=== PATIENT | male | born 1935 | race Caucasian/White ===

== ENCOUNTER 2018-08-10 18:06 | Emergency (ER) | payer OTHER, MEDICARE ==
--- NOTE | 2018-08-10 20:19 | EDPHY ---
H & P Smoking Status: Former smoker Time Seen by Provider: 08/10/18 19:59 HPI/ROS: CHIEF COMPLAINT: Skin tear left humerus HISTORY OF PRESENT ILLNESS: 83-year-old male with up-to-date tetanus tripped and fell impacting his left humerus sustaining skin tear. Occurred earlier this evening. No underlying osseous discomfort. This was a mechanical incident. No proximal or distal pain or injury PRIMARY CARE PROVIDER: REVIEW OF SYSTEMS: 10 systems reviewed and are negative with exception of illness mentioned in the history of present illness PHYSICAL EXAM (Prior to examination, patient consented to physical exam, hands were washed and my usual and customary physical exam procedures followed) 1) GENERAL: Well-developed, well-nourished, alert and oriented. Appears to be in no acute distress. 2) HEAD: Normocephalic 3) HEENT: sclera anicteric 4) LUNGS: Breathing comfortably. 5) SKIN: Left lateral humeral region superficial skin tear with no signs of infection. No underlying osseous discomfort 6) MUSCULOSKELETAL: Soft compartments. Proximally distally nontender. No underlying osseous discomfort. (Palak Carmichael) Constitutional: Initial Vital Signs Temperature (C) 36.7 C 08/10/18 18:10 Heart Rate 79 08/10/18 18:10 Respiratory Rate 18 08/10/18 18:10 Blood Pressure 118/67 08/10/18 18:10 O2 Sat (%) 95 08/10/18 18:10 O2 Delivery Mode Room Air Allergies/Adverse Reactions: No Known Allergies Allergy (Unverified 08/10/18 18:09) Home Medications: Medication Instructions Recorded Lovastatin 08/10/18 Meloxicam 08/10/18 MDM/Departure - MDM Procedures: Procedure: Tissue debridement Indication: Skin tear with nonviable tissue Tissue was debrided by myself using usual and customary technique. Patient tolerated this well. Wound was dressed with antibiotic ointment and sterile dressing. (Palak Carmichael) ED Course/Re-evaluation: I saw this patient independently based on established practice protocols. Care of patient under supervision of primary Supervising physician Dr Jann Sutton ( Palak Carmichael) I did not see this patient while he was in the emergency department. However his care was discussed with the PA while the patient was in the department. I agree with treatment plan and management (Jann Sutton) - Depart Disposition: Home, Routine, Self-Care Clinical Impression: Skin tear of left upper arm without complication Qualifiers: Encounter type: initial encounter Qualified Code(s): S41.112A - Laceration without foreign body of left upper arm, initial encounter Condition: Good Instructions: Skin Tear (ED) Additional Instructions: Return to the ER if you develop redness, swelling, discharge, warmth to the wound, red streaks going up your arm, or any other symptoms that concern you. Referrals: Kerri Bautista MD [Primary Care Provider] - 1-2 days without fail
[2018-08-10 20:36] VITALS: BP 120/87
== END 2018-08-10 20:36 | disposition home or self-care (01) ==
PROC: 0JBF0ZZ Excision of Left Upper Arm Subcutaneous Tissue and Fascia, Open Approach (ICD-10-PCS; principal; 2018-08-10)
DX: S41.112A Laceration without foreign body of left upper arm, initial encounter (principal); W01.0XXA Fall on same level from slipping, tripping and stumbling without subsequent striking against object, initial encounter; Y99.9 Unspecified external cause status; Y92.9 Unspecified place or not applicable; Y93.9 Activity, unspecified

== ENCOUNTER → 2019-02-23 | Outpatient (CLI) | payer OTHER, MEDICARE | LOC: FIMAGING 14:45 | PROVIDERS: ATTEND Family Medicine | DX: E53.8 Deficiency of other specified B group vitamins (principal); I10 Essential (primary) hypertension; N28.1 Cyst of kidney, acquired; R94.5 Abnormal results of liver function studies ==

== ENCOUNTER → 2019-03-01 | Outpatient (CLI) | payer OTHER, MEDICARE ==
[~2019-03-01] MED LIST: IOPAMIDOL (ISOVUE-300) 100 ML BTL ONE
== END ==
LOC: FIMAGING 12:45
PROVIDERS: ATTEND Family Medicine
DX: N28.1 Cyst of kidney, acquired (principal); K57.30 Diverticulosis of large intestine without perforation or abscess without bleeding
CPT/HCPCS: 74177; Q9967